=== PATIENT | male | born 1955 | race African-American/Black ===

== ENCOUNTER → 2016-08-08 | Day surgery (SDC) | payer OTHER ==
[~2016-08-08] MED LIST: AMLO10TA2 PO; CHLO25TA PO; FENTANYL PF 100 MCG/2 ML VIAL. IV PRN; HYDROMORPHONE 2 MG/ML VIAL. IV PRN; IV RINGERS,LACTATED 1000ML 1,000 ML IV SCH; LIDOCAINE 1% 1 ML SYRINGE. ID PRN; LIDOCAINE 2% PF Vial for OR 5 ML VIAL. ONE; MORPHINE SULFATE 2 MG/ML DISP.SYRIN. IV PRN; MULT1TAB52 PO; OMEG1050 PO; ONDANSETRON PF 4 MG/2 ML VIAL. IV PRN; PROCHLORPERAZINE 10 MG/2 ML VIAL. IV PRN; PROPOFOL 40 ML IV ONE; SIMV20TA3 PO
[2016-08-08 09:28] VITALS: BP 130/74
== END | disposition home or self-care (01) ==
LOC: ENDOS 07:14
PROVIDERS: ATTEND Internal Medicine Gastroenterology
DX: K64.0 First degree hemorrhoids (principal); K21.9 Gastro-esophageal reflux disease without esophagitis; E78.00 Pure hypercholesterolemia, unspecified; M19.90 Unspecified osteoarthritis, unspecified site; I10 Essential (primary) hypertension; Z87.891 Personal history of nicotine dependence; Z72.89 Other problems related to lifestyle; Z82.49 Family history of ischemic heart disease and other diseases of the circulatory system; Z82.3 Family history of stroke; Z83.3 Family history of diabetes mellitus
CPT/HCPCS: 45378; J2704

== ENCOUNTER → 2018-02-23 | Outpatient (CLI) | payer OTHER ==
[2016-08-08 09:28] VITALS: BP 130/74
[~2018-02-23] MED LIST changes: -AMLO10TA2 PO; +AMLO10TA6 PO; -FENTANYL PF 100 MCG/2 ML VIAL. IV PRN; -HYDROMORPHONE 2 MG/ML VIAL. IV PRN; -IV RINGERS,LACTATED 1000ML 1,000 ML IV SCH; -LIDOCAINE 1% 1 ML SYRINGE. ID PRN; -LIDOCAINE 2% PF Vial for OR 5 ML VIAL. ONE; -MORPHINE SULFATE 2 MG/ML DISP.SYRIN. IV PRN; -ONDANSETRON PF 4 MG/2 ML VIAL. IV PRN; -PROCHLORPERAZINE 10 MG/2 ML VIAL. IV PRN; -PROPOFOL 40 ML IV ONE; +REGADENOSON 0.4 MG/5 ML DISP.SYRIN. IV ONE
--- NOTE | 2018-02-23 14:13 | RAD ---
MR#: [id number] Date of Study: 02/23/2018 Ordering Physician: TALON TORRES, Referring Physician: ELSIE MCMAHON Tech: BRANT Crawford, ARRT (R) (N) APPROVED REPORT Test Type: Pharmacological Stress Nurse/Tech: Mikala Gallego RN Test Indications: Dyspnea on exertion Cardiac History: Hyperlipidemia, HTN Medications: See Electronic Medical Record Medical History: See Electronic Medical Record Resting ECG: SR, PAC Resting Heart Rate: 58 bpm Resting Blood Pressure: 137/84mmHg Pretest Chest Pain: None Nurse/Tech Notes Lungs CTA, S1S2 Consent: The procedure was explained to the patient in lay terms. Informed consent was witnessed. Ralph eout was entered into [employer]. History and Stress Test performed by mikala Gallego RN Pharm. Details Pharmacologic stress testing was performed using 0.4mg per 5ml of regadenoson given intravenously ove r 7-10 seconds. Stress Symptoms No chest pain or symptoms. POST EXERCISE Reason for Termination: Infusion complete Max HR: 91 bpm Max Blood Pressure: 142/85mmHg Blood Pressure response to exercise: Normal blood pressure response during stress. Heart Rate response to exercise: normal response Chest Pain: No. Arrhythmia: Yes. PVC, PAC ST Change: No. INTERPRETATION Stress EKG Conclusion: The resting EKG shows a sinus rhythm with nonspecific ST-T wave changes and an incomplete right bundle branch block. The stress EKG shows no significant changes from baseline. No EKG evidence of stress-induced ischemia. Imaging Protocol IMAGE PROTOCOL: Rest Tc-99m/stress Tc-99m 1 day Rest: Stress: Viability: Radiopharm.Tc99m JhffqwhtsKb69l Sestamibi Gfom32xLb 34mCi Img Date 02/23/2018 02/23/2018 Inj-Img [id number]. 90min. Rest Admin Site:IV - Right HandAdministrator:BRANT Crawford, ARRT (R)(N) Stress Admin Site: IV - Right HandAdministrator: RT Beth (R)(N) STRESS DATA End Diast. Vol.154.0mlAv. Heart Rate57.0bpm End Syst. Vol.48.0mlCO Index BSA0.0L/min Myocardial Wnze794.0gEject. Mjfnqeyt50.0% Stress Rates Pk. Fill Rate2.87EDV/secLVtime Pk. Fill 191.07msec Pk. Empty Rate3.36ESV/secLVtime Pk. Fhgav490.15msec 1/3 Pk. Fill1.79EDV/sec Stress Scores Regional WT0.00Summed WT0.00 Regional WM0.00Summed WM0.00 LV Perfusion The stress scans showed no significant defects. The rest scans showed no significant defects. Nuclear imaging shows no reversible ischemia or infarct. Wall Motion Normal left ventricular systolic function with ejection fraction of 69%. LV Perf. Quant 17 Seg. SSS0.00 17 Seg. SRS0.00 17 Seg. SDS0.00 Stress Defect Extent (% LAD)0.00Rest Defect Extent (% LAD)0.00Rev. Defect Extent (% LAD)0.00 Stress Defect Extent (% LCX) 0.00Rest Defect Extent (% LCX)0.00Rev. Defect Extent (% LCX)0.00 Stress Defect Extent (% RCA)0.00Rest Defect Extent (% RCA)0.00Rev. Defect Extent (% RCA)0.00 Stress Defect Extent (% MELISA)0.00Rest Defect Extent (% MELISA)0.00Rev. Defect Extent (% MELISA)0.00 Conclusion 1. No EKG evidence of stressed induced ischemia. 2. Nuclear imaging shows no reversible ischemia or infarct. 3. Normal left ventricular systolic function with an ejection fraction of 69%. 4. Low risk Lexiscan nuclear stress test. Signed by : Talon Torres MD Electronically Approved : 02/23/2018 14:12:39
== END | disposition home or self-care (01) ==
LOC: NM 07:48
PROVIDERS: ATTEND Internal Medicine Cardiovascular Disease
DX: R06.09 Other forms of dyspnea (principal); E78.5 Hyperlipidemia, unspecified; I10 Essential (primary) hypertension
CPT/HCPCS: 78452; 93017; 96374; 96375; 96376; A9500; J2785

== ENCOUNTER → 2018-05-24 | Outpatient (CLI) | payer OTHER ==
[2016-08-08 09:28] VITALS: BP 130/74
[~2018-05-24] MED LIST changes: -AMLO10TA6 PO; +AMLO10TA8 PO; -CHLO25TA PO; +CHLO25TA10 PO; -REGADENOSON 0.4 MG/5 ML DISP.SYRIN. IV ONE
--- NOTE | 2018-05-24 17:53 | KCIC ---
EXAM: PA and Lateral Views of the Chest DATE: 05/24/2018 12:00 AM INDICATION: Shortness of air, previous smoker COMPARISON: No Prior FINDINGS: The heart is not enlarged. Mediastinal and hilar contours are normal. No focal parenchymal airspace opacity. No pleural effusion or pneumothorax. IMPRESSION: 1. No radiographic evidence for acute cardiopulmonary process. Electronically signed by: Moisés Cisneros MD (05/24/2018 5:48 PM) [facility]
== END | disposition home or self-care (01) ==
LOC: KCIC 10:53
PROVIDERS: ATTEND Family Medicine
DX: R06.02 Shortness of breath (principal); Z87.891 Personal history of nicotine dependence
CPT/HCPCS: 71046

== ENCOUNTER → 2019-01-31 | Outpatient (CLI) | payer OTHER ==
[2016-08-08 09:28] VITALS: BP 130/74
--- NOTE | 2019-02-01 16:26 | RAD ---
Noncontrast CT study of the foot and ankle-bilateral exam Clinical indications: Bilateral ankle and foot pain walking. TECHNIQUE: Noncontrast helical CT scanning of the ankle and foot bilaterally was performed. Multiplanar 2-D reconstructions were generated. PQRS compliance Statement One or more of the following individualized dose reduction techniques were utilized for this study: 1. Automated exposure control 2. Adjustment of the mA and/or kV according to patient size 3. Use of iterative reconstruction technique COMPARISON: None available. RIGHT FOOT AND ANKLE: No acute fracture or dislocation or lytic process is evident. No periosteal reaction is seen. There is mild primary degenerative osteoarthritis of the first metatarsal phalangeal joint. Small plantar spur of the calcaneus is seen. There is mild calcification of the plantar fascia which may be seen with calcific plantar fasciitis. No osseous tarsal coalition is seen. There is dorsal exostosis of the neck of the talus. There is a prominent exostosis of the distal lateral aspect of the calcaneus. This is located anterior to the peroneal tendons. There is degenerative cyst formation of the tibial plafond and the dome of the talus along with degenerative spurring of the tibiotalar joint compartment and joint space narrowing. This is consistent with moderate degenerative osteoarthritis of this joint compartment. No unstable osteochondral fragment is seen here by CT. No significant mortise ankle joint effusion is seen. There is degenerative spurring and joint space narrowing of the posterior and anteromedial subtalar joint compartments. There is calcific Achilles tendinitis present. No soft tissue mass or abscess is seen. No tenosynovitis is seen. 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 There is a small dorsal spur of the neck of the talus. No osseous tarsal coalition is seen. Prominent lateral exostosis of the distal calcaneus. No acute fracture or periosteal reaction. Mild primary degenerative osteoarthritis of the first metatarsal phalangeal joint and subtalar joint compartments. Calcific plantar fasciitis and calcific Achilles tendinitis. Small plantar spur of the calcaneus. LEFT FOOT AND ANKLE: No acute fracture or dislocation or lytic process is seen. No periosteal reaction is evident. Bipartite medial sesamoid bone is seen which is a normal anatomical variant. There is mild degenerative osteoarthritis of the first metatarsal phalangeal joint. There is mild spurring and joint space narrowing of the tibiotalar joint compartment. No significant mortise ankle joint effusion is seen. No significant subchondral cyst formation of the tibial plafond or dome of the talus is seen. No osseous tarsal coalition is seen. There is prominent spurring and moderate joint space narrowing and subchondral cyst formation of the talonavicular joint compartment. There is moderate joint space narrowing and spurring of the posterior subtalar joint compartment. There is severe joint space narrowing and prominent spurring and moderate subchondral cyst formation of the anterior medial subtalar joint compartment. There is a small plantar spur of the calcaneus. There is calcification of the plantar fascia consistent with calcific plantar fasciitis. The Achilles tendon is unremarkable. No tenosynovitis is seen. No soft tissue mass or abscess is evident. IMPRESSION: No acute fracture or periosteal reaction. Degenerative osteoarthritis of the tibiotalar joint compartment and the talonavicular joint compartment and the subtalar joint compartments and the first metatarsal phalangeal joint. Calcific plantar fasciitis. Small plantar spur of the calcaneus. Electronically signed by: Colton Salazar MD (02/01/2019 4:23 PM) [id number]
== END | disposition home or self-care (01) ==
LOC: CT 16:29
PROVIDERS: ATTEND Family Medicine
DX: M77.31 Calcaneal spur, right foot (principal); M76.61 Achilles tendinitis, right leg; M72.2 Plantar fascial fibromatosis; M19.071 Primary osteoarthritis, right ankle and foot; M19.072 Primary osteoarthritis, left ankle and foot
CPT/HCPCS: 73700

== ENCOUNTER 2019-04-25 01:22 | Emergency (ER) | payer OTHER ==
[~2019-04-25] VITALS: Ht 180.3 cm; Wt 97.1 kg
[~2019-04-25 01:22] MED LIST changes: +SIMV20TA18 PO; -SIMV20TA3 PO
[2019-04-25] MEDS ORDERED: IV NORMAL SALINE 1000ML BAG 1,000 ML IV ONE (01:30)
--- NOTE | 2019-04-25 01:36 | PHYS DOC ---
Past Medical History Past Medical History: High Cholesterol, Hypertension Past Surgical History: No Surgical History Smoking: Quit Greater Than 1 Year Additional Information: Nonsmoker Alcohol Use: Rarely Drug Use: None Adult General Chief Complaint Chief Complaint: SYNCOPE HPI HPI Patient is a 64 year old male with past medical history of hypertension and elevated cholesterol who presents with right-sided throat and neck pain since yesterday who also had a syncopal episode tonight at approximately 0030 when he got up from sleep because he was sweating profusely. He reports feeling lightheaded and falling to the ground but denies significant trauma to his head or any other extremity. He is not complaining of any musculoskeletal pain at this time. The patient reports painful swallowing and tenderness under his right mandible and along his right throat. He denies any nausea, vomiting, or diarrhea. He likewise denies any chest pain, shortness of breath, abdominal pain, or dysuria. Review of Systems Review of Systems Constitutional: Reports subjective fever/chills at home. Eyes: Denies redness or eye pain HENT: Reports right-sided throat swelling/pain. Respiratory: Denies cough or shortness of breath Cardiovascular: Denies chest pain or palpitations GI: Denies abdominal pain, nausea, or vomiting : Denies dysuria or hematuria Musculoskeletal: Denies back pain or joint pain Integument: Denies rash or skin lesions Neurologic: Denies headache, focal weakness or sensory changes Complete systems were reviewed and found to be within normal limits, except as documented in this note. Current Medications Current Medications Current Medications Medications (Trade) Dose Ordered Sig/Sarwat Start Time Stop Time Status Last Admin Dose Admin Clindamycin Phosphate 50 ml @ 100 mls/hr 1X ONCE 04/25/19 03:45 04/25/19 04:14 DC 04/25/19 03:45 100 MLS/HR Dexamethasone Sodium Phosphate (Decadron) 10 mg 1X ONCE 04/25/19 02:00 04/25/19 02:01 DC 04/25/19 02:36 10 MG Fentanyl Citrate (Fentanyl 2ml Vial) 50 mcg 1X ONCE 04/25/19 03:45 04/25/19 03:46 DC 04/25/19 04:24 50 MCG Info (CONTRAST GIVEN -- Rx MONITORING) 1 each PRN DAILY PRN 04/25/19 02:15 04/25/19 04:29 DC Iohexol (Omnipaque 300 Mg/ml) 70 ml 1X ONCE 04/25/19 02:15 04/25/19 02:16 DC 04/25/19 02:30 70 ML Ketorolac Tromethamine (Toradol 15mg Vial) 15 mg 1X ONCE 04/25/19 02:00 04/25/19 02:01 DC 04/25/19 02:36 15 MG Sodium Chloride 1,000 ml @ 1,000 mls/hr 1X ONCE 04/25/19 01:30 04/25/19 02:29 DC 04/25/19 01:42 1,000 MLS/HR Allergies Allergies Allergies Coded Allergies Type Severity Reaction Last Updated Verified Sulfa (Sulfonamide Antibiotics) Allergy Mild 02/23/18 Yes Physical Exam Physical Exam Constitutional: Well developed, well nourished, no acute distress, non-toxic appearance HENT: Normocephalic, atraumatic. Right submandibular swelling and TTP. Erythematous pharynx with right tonsillar swelling and movement of uvular toward left Eyes: conjunctiva normal, no discharge Neck: Normal range of motion, tenderness to right side of throat, supple Cardiovascular: Heart rate normal, regular rhythm Lungs & Thorax: Bilateral breath sounds clear to auscultation, no wheezing Skin: Warm, dry, no erythema, no rash Extremities: No tenderness, ROM intact, no edema Psychologic: Affect normal, judgement normal Current Patient Data Vital Signs Vital Signs Date Time Temp Pulse Resp B/P (MAP) Pulse Ox O2 Delivery O2 Flow Rate FiO2 04/25/19 04:24 20 99 Room Air 04/25/19 03:56 60 155/74 (101) 04/25/19 01:35 98.5 98.5 Lab Values Laboratory Tests Test 04/25/19 01:30 04/25/19 02:45 White Blood Count 12.8 x10^3/uL (4.0-11.0) H Red Blood Count 5.07 x10^6/uL (4.30-5.70) Hemoglobin 14.3 g/dL (13.0-17.5) Hematocrit 44.0 % (39.0-53.0) Mean Corpuscular Volume 87 fL (79-100) Mean Corpuscular Hemoglobin 28 pg (25-35) Mean Corpuscular Hemoglobin Concent 33 g/dL (31-37) Red Cell Distribution Width 15.2 % (11.5-14.5) H Platelet Count 197 x10^3/uL (140-400) Neutrophils (%) (Auto) 82 % (31-73) H Lymphocytes (%) (Auto) 6 % (24-48) L Monocytes (%) (Auto) 10 % (0-9) H Eosinophils (%) (Auto) 1 % (0-3) Basophils (%) (Auto) 0 % (0-3) Neutrophils # (Auto) 10.5 x10^3/uL (1.8-7.7) H Lymphocytes # (Auto) 0.8 x10^3/uL (1.0-4.8) L Monocytes # (Auto) 1.3 x10^3/uL (0.0-1.1) H Eosinophils # (Auto) 0.1 x10^3/uL (0.0-0.7) Basophils # (Auto) 0.0 x10^3/uL (0.0-0.2) Sodium Level 142 mmol/L (136-145) Potassium Level 3.5 mmol/L (3.5-5.1) Chloride Level 101 mmol/L (98-107) Carbon Dioxide Level 32 mmol/L (21-32) Anion Gap 9 (6-14) Blood Urea Nitrogen 12 mg/dL (8-26) Creatinine 1.2 mg/dL (0.7-1.3) Estimated GFR (Cockcroft-Gault) 74.0 BUN/Creatinine Ratio 10 (6-20) Glucose Level 139 mg/dL (70-99) H Lactic Acid Level 1.0 mmol/L (0.4-2.0) Calcium Level 9.6 mg/dL (8.5-10.1) Magnesium Level 1.9 mg/dL (1.8-2.4) Total Bilirubin 0.6 mg/dL (0.2-1.0) Aspartate Amino Transferase (AST) 27 U/L (15-37) Alanine Aminotransferase (ALT) 32 U/L (16-63) Alkaline Phosphatase 67 U/L (46-116) Creatine Kinase 279 U/L (39-308) Creatine Kinase MB (Mass) 1.3 ng/mL (0.0-3.6) Creatine Kinase MB Relative Index 0.5 % (0-4) Troponin I Quantitative < 0.017 ng/mL (0.000-0.055) Total Protein 8.3 g/dL (6.4-8.2) H Albumin 3.8 g/dL (3.4-5.0) Albumin/Globulin Ratio 0.8 (1.0-1.7) L Heterophil Agglutinins Negative (NEGATIVE) Urine Collection Type Unknown Urine Color Yellow Urine Clarity Clear Urine pH 7.0 Urine Specific [place] 1.010 Urine Protein Negative mg/dL (NEG-TRACE) Urine Glucose (UA) Negative mg/dL (NEG) Urine Ketones (Stick) Negative mg/dL (NEG) Urine Blood Negative (NEG) Urine Nitrite Negative (NEG) Urine Bilirubin Negative (NEG) Urine Urobilinogen Dipstick 0.2 mg/dL (0.2 mg/dL) Urine Leukocyte Esterase Negative (NEG) Urine RBC Occ /HPF (0-2) Urine WBC Occ /HPF (0-4) Urine Squamous Epithelial Cells Occ /LPF Urine Bacteria 0 /HPF (0-FEW) Urine Mucus Slight /LPF Group A Streptococcus Rapid Negative (NEGATIVE) Laboratory Tests 04/25/19 01:30 Laboratory Tests 04/25/19 01:30 EKG EKG @0129 NSR at 60bpm, NO ST elevation, RBBB Radiology/Procedures Radiology/Procedures PROCEDURE: CT SOFT TISSUE NECK W/CONTRAST CT SOFT TISSUE NECK W/CONTRAST DATE: 04/25/2019 1:45 AM INDICATION: Right submandibular swelling and pain TECHNIQUE: Axial computed tomography of the neck with intravenous contrast according to the standard neck protocol. 70 cc of Omnipaque 300 was administered intravenously. One or more of the following dose reduction techniques were utilized: Automated exposure control (AEC), Adjustment of mA and/or kV according to patient size, Use of iterative reconstruction technique such as ASiR, CT scan done according to ALARA and image gently/image wisely COMPARISON: None. FINDINGS: Enlargement of the right greater than left palatine tonsils, with region of low attenuation in the right palatine tonsil measuring 1 cm. Enlargement of the uvula and generalized oropharyngeal mucosal thickening. Stranding in the right parapharyngeal fat which extends into the hypopharynx, with effacement of the right piriform sinus and partial effacement of the epiglottic vallecula on the right. Thickening of the right aryepiglottic fold. Moderate to severe narrowing of the airway, particularly the oropharynx and the supraglottic larynx. Enlarged right cervical lymph nodes, likely reactive. The parotid, submandibular, and thyroid glands are normal. The muscles of the neck are normal. Vessels of the neck demonstrate normal course, caliber, and enhancement. The visualized aerodigestive tract is normal. The visualized posterior fossa and brain is unremarkable. The visualized orbits and paranasal sinuses are normal. Mild multilevel degenerative disc desiccation. Multilevel spinal canal stenosis secondary to disc protrusions and marginal osteophytes. Multilevel neural foraminal narrowing secondary to uncovertebral and facet arthrosis. The visualized lung apices are clear. IMPRESSION: Enlargement of the palatine tonsils with 1 cm region of low attenuation in the right palatine tonsil, likely phlegmon or small abscess. Extensive oropharyngeal inflammation with moderate to severe narrowing of the oropharynx. Inflammation extends inferiorly along the right side to involve the supraglottic larynx, which is also narrowed. Asymmetric enlarged right cervical lymph nodes, likely reactive. Electronically signed by: Joe De Souza MD (04/25/2019 3:00 AM) [facility] [] Course & Med Decision Making Course & Med Decision Making Pertinent Labs and Imaging studies reviewed. (See chart for details) Patient is a 64-year-old male who presents with right sided submandibular and throat swelling, along with near-syncopal episode tonight. The patient denies any loss of consciousness, lightheadedness, shortness of breath, or chest pain at this time. However, he is exhibiting difficulty speaking and swallowing. CT of the soft tissue of the neck was ordered which showed small early paratonsillar abscess. The patient was swabbed for strep throat and mononucleosis, which both came back negative. The patient was administered Toradol 15 mg, dexamethasone 10 mg, and IV fluids to help with pain and swelling. EKG of the heart, Urinalysis, and labs were obtained to evaluate for potential causes of his syncopal episode. UA and EKG were normal. Labs were largely unremarkable. Empiric antibiotics given. Patient offered transfer to facility with ENT coverage (as no on-call ENT at [facility] at this time) vs outpatient followup on oral antibiotics with ENT/PCP with understanding to return for any worsening of symptoms. Patient elected to be discharge home at this time and will return for worsening of symptoms. Patient stable for discharge with outpatient follow-up with PCP/ENT. ENT referral provided. Discussed findings and plan with patient and family, who acknowledge understanding and agreement. Katlyn Disclaimer Katlyn Disclaimer This electronic medical record was generated, in whole or in part, using a voice recognition dictation system. Departure Departure Impression: Primary Impression: Peritonsillar abscess Disposition: HOME, SELF-CARE Condition: STABLE Referrals: DALTON MARTIN MD (PCP) KAYLA SMITH MD Patient Instructions: Peritonsillar Abscess, Cthr-qc-Vuvo Scripts Hydrocodone Bit/Acetaminophen (HYDROCODONE-APAP 7.5-325/15 SOLN ) 15 Ml Solution 10 ML PO PRN Q6HRS PRN for PAIN, #200 ML 0 Refills Prov: JOE MULLER DO 04/25/19 Prednisolone (PREDNISOLONE) 15 Mg/5 Ml Solution 10 ML PO DAILY for 5 Days, #50 ML 0 Refills Prov: JOE MULLER DO 04/25/19 Clindamycin Hcl (CLINDAMYCIN HCL) 300 Mg Capsule 1 CAP PO TID for Infection, #21 CAP Prov: JOE MULLER DO 04/25/19 JOE MULLER DO Apr 25, 2019 01:36
[2019-04-25 01:51] LABS: BASO % 0 % (0-3); EOS # 0.1 x10^3/uL (0.0-0.7); EOS % 1 % (0-3); HEMOGLOBIN 14.3 g/dL (13.0-17.5); LYMPH # 0.8 x10^3/uL (1.0-4.8); LYMPH % 6 % (24-48); MEAN CORPUSCULAR HEMOGLOBIN 28 pg (25-35); MEAN CORPUSCULAR HGB CONC 33 g/dL (31-37); MEAN CORPUSCULAR VOLUME 87 fL (79-100); MONO # 1.3 x10^3/uL (0.0-1.1); MONO % 10 % (0-9); NEUT # 10.5 x10^3/uL (1.8-7.7); NEUT % 82 % (31-73); PLATELET COUNT 197 x10^3/uL (140-400); RED BLOOD COUNT 5.07 x10^6/uL (4.30-5.70); RED CELL DISTRIBUTION WIDTH 15.2 % (11.5-14.5); WHITE BLOOD COUNT 12.8 x10^3/uL (4.0-11.0)
[2019-04-25 01:59] LABS: CALCIUM 9.6 mg/dL (8.5-10.1); CREATININE 1.2 mg/dL (0.7-1.3); POTASSIUM 3.5 mmol/L (3.5-5.1)
[2019-04-25] MEDS ORDERED: DEXAMETHASONE SOD PHOS 4 MG/ML VIAL IVP ONE (02:00)
[2019-04-25] MEDS ORDERED: KETOROLAC 15 MG/ML VIAL. IVP ONE (02:00)
[2019-04-25 02:02] LABS: MONONUCLEOSIS PATIENT NEGATIVE (NEGATIVE)
[2019-04-25 02:05] LABS: ALBUMIN 3.8 g/dL (3.4-5.0); ALBUMIN/GLOBULIN RATIO 0.8 (1.0-1.7); MAGNESIUM 1.9 mg/dL (1.8-2.4); TOTAL BILIRUBIN 0.6 mg/dL (0.2-1.0); TOTAL PROTEIN 8.3 g/dL (6.4-8.2)
[2019-04-25] MEDS ORDERED: IOHEXOL 300 MG/ML 100ML VIAL. IV ONE (02:15)
[2019-04-25] MEDS ORDERED: CONTRAST GIVEN. MC PRN (02:15)
[2019-04-25 02:52] LABS: BILIRUBIN,URINE NEGATIVE (NEG); CLARITY,URINE CLEAR; COLOR,URINE YELLOW; NITRITE,URINE NEGATIVE (NEG); PROTEIN,URINE NEGATIVE (NEG-TRACE); UROBILINOGEN,URINE 0.2 mg/dL (0.2 mg/dL)
[2019-04-25 02:56] LABS: BACTERIA,URINE 0 /HPF (0-FEW); RBC,URINE OCC /HPF (0-2); SQUAMOUS EPITHELIAL CELL,UR OCC /LPF; WBC,URINE OCC /HPF (0-4)
--- NOTE | 2019-04-25 03:03 | RAD ---
CT SOFT TISSUE NECK W/CONTRAST DATE: 04/25/2019 1:45 AM INDICATION: Right submandibular swelling and pain TECHNIQUE: Axial computed tomography of the neck with intravenous contrast according to the standard neck protocol. 70 cc of Omnipaque 300 was administered intravenously. One or more of the following dose reduction techniques were utilized: Automated exposure control (AEC), Adjustment of mA and/or kV according to patient size, Use of iterative reconstruction technique such as ASiR, CT scan done according to ALARA and image gently/image wisely COMPARISON: None. FINDINGS: Enlargement of the right greater than left palatine tonsils, with region of low attenuation in the right palatine tonsil measuring 1 cm. Enlargement of the uvula and generalized oropharyngeal mucosal thickening. Stranding in the right parapharyngeal fat which extends into the hypopharynx, with effacement of the right piriform sinus and partial effacement of the epiglottic vallecula on the right. Thickening of the right aryepiglottic fold. Moderate to severe narrowing of the airway, particularly the oropharynx and the supraglottic larynx. Enlarged right cervical lymph nodes, likely reactive. The parotid, submandibular, and thyroid glands are normal. The muscles of the neck are normal. Vessels of the neck demonstrate normal course, caliber, and enhancement. The visualized aerodigestive tract is normal. The visualized posterior fossa and brain is unremarkable. The visualized orbits and paranasal sinuses are normal. Mild multilevel degenerative disc desiccation. Multilevel spinal canal stenosis secondary to disc protrusions and marginal osteophytes. Multilevel neural foraminal narrowing secondary to uncovertebral and facet arthrosis. The visualized lung apices are clear. IMPRESSION: Enlargement of the palatine tonsils with 1 cm region of low attenuation in the right palatine tonsil, likely phlegmon or small abscess. Extensive oropharyngeal inflammation with moderate to severe narrowing of the oropharynx. Inflammation extends inferiorly along the right side to involve the supraglottic larynx, which is also narrowed. Asymmetric enlarged right cervical lymph nodes, likely reactive. Electronically signed by: Joe De Souza MD (04/25/2019 3:00 AM) [facility]
[2019-04-25] MEDS ORDERED: CLIN300C8 PO (03:43)
[2019-04-25] MEDS ORDERED: PRED15SO24 PO (03:43)
[2019-04-25] MEDS ORDERED: HYDR15SO6 PO (03:43)
[2019-04-25] MEDS ORDERED: fentaNYL PF VIAL 100 MCG/2 ML VIAL IV ONE (03:45)
[2019-04-25] MEDS ORDERED: CLINDAMYCIN 600MG PREMIX 50 ML IV ONE (03:45)
[2019-04-25 03:56] VITALS: BP 155/74
--- NOTE | 2019-04-25 07:39 | EKG ---
[address] [place] [address] Test Date: 2019-04-25 Test Time: 01:29:15 Pat Name: TALON CULP Department: Room: Gender: M Rn Clinical Review: : 1955 Requested By: JOE MULLER Order Number: [id number] Reading MD: Measurements Intervals [place] Rate: 60 P: 43 GA: 156 QRS: 35 QRSD: 124 T: 47 QT: 432 QTc: 436 Interpretive Statements SINUS RHYTHM LEFT ATRIAL ABNORMALITY ABNORMAL ECG RI6.01 No previous ECG available for comparison
== END 2019-04-25 04:29 | disposition home or self-care (01) ==
LOC: ER 01:22
DX: J36 Peritonsillar abscess (principal); I10 Essential (primary) hypertension; E78.00 Pure hypercholesterolemia, unspecified; Z87.891 Personal history of nicotine dependence; Z88.2 Allergy status to sulfonamides
CPT/HCPCS: 36415; 70491; 80053; 81001; 82553; 83605; 83735; 84484; 85025; 86308; 87070; 87880; 93005; 96361; 96365; 96375; 99285; J1100; J1885; J3010; J3490; J7030; Q9967

== ENCOUNTER → 2021-08-09 | Outpatient (CLI) | payer OTHER ==
[~2021-08-09] MED LIST changes: +AMLO-187 PO; -AMLO10TA8 PO; +CLIN-94 PO; +HYDR15SO6 PO; +MULT-445 PO; -MULT1TAB52 PO; +PRED15SO24 PO
--- NOTE | 2021-08-10 04:41 | KCIC ---
EXAMINATION: XR KNEE 3 VIEWS_RT, XR RT TIBIA+FIBULA , XR FEMUR_RIGHT CLINICAL HISTORY: Chronic right lower extremity. TECHNIQUE: XR KNEE 3 VIEWS_RT, XR RT TIBIA+FIBULA , XR FEMUR_RIGHT COMPARISON: None FINDINGS/ IMPRESSION: Right hip joint incompletely evaluated. Moderate mediolateral compartment narrowing in the knee with tiny marginal osteophytes and chondrocal cinosis. Patellar enthesophytes. No significant joint effusion. Joints at the ankle incompletely evaluated. No acute fracture. Dystrophic calcification at the Achilles insertion, compatible with chronic tendinosis. No focal soft tissue swelling. Electronically signed by: Nathan Call DO (08/10/2021 4:39 AM) [facility]
== END ==
LOC: KCIC 12:52
PROVIDERS: ATTEND Family Medicine
DX: M65.262 Calcific tendinitis, left lower leg (principal); M11.261 Other chondrocalcinosis, right knee; M76.891 Other specified enthesopathies of right lower limb, excluding foot; M25.861 Other specified joint disorders, right knee; M25.761 Osteophyte, right knee
CPT/HCPCS: 73552; 73562; 73590